=== PATIENT | male | born 1950 | race Caucasian/White ===

== ENCOUNTER 2016-10-06 06:59 | Day surgery (SDC) | payer BC ==
[~2016-10-06] VITALS: Ht 182.9 cm; Wt 120.0 kg
[~2016-10-06 06:59] MED LIST: ASPI-496 PO; ASPI-515 PO; CITA20TA5 PO; FENO145T13 PO; MULT-26 PO; RANI150T8 PO; ROSU20TA PO
[2016-10-06] MEDS ORDERED: LACTATED RINGERS 1,000 ML IV SCH (07:29)
[2016-10-06] MEDS ORDERED: LIDOCAINE 1%, 2ML SQ PRN (07:30)
[2016-10-06 07:31] VITALS: BP 130/82
[2016-10-06] MEDS ORDERED: FENTANYL PF 100 MCG/2ML ONE (09:16)
[2016-10-06] MEDS ORDERED: LABETALOL 5MG/ML, 20ML IV PRN (10:00)
[2016-10-06] MEDS ORDERED: ONDANSETRON 2MG/ML, 2ML IVPush PRN (10:00)
[2016-10-06] MEDS ORDERED: HYDROmorphone 1 MG/ML, 1ML IV PRN (10:00)
[2016-10-06] MEDS ORDERED: METOPROLOL 1 MG/ML, 5ML IV PRN (10:00)
[2016-10-06] MEDS ORDERED: OXYcodone 5 MG/5 ML ORAL.SOL UDC PO PRN (10:00)
[2016-10-06] MEDS ORDERED: FENTANYL PF 100 MCG/2ML IV PRN (10:00)
[2016-10-06] MEDS ORDERED: PROMETHAZINE 25 MG/ML, 1ML IV PRN (10:00)
[2016-10-06] MEDS ORDERED: hydrALAzine 20 MG/ML, 1ML IV PRN (10:00)
[2016-10-06] MEDS ORDERED: PROPOFOL 10 MG/ML, 20ML ONE (11:00)
[2016-10-06] MEDS ORDERED: NEOSTIGMINE 1 MG/ML, 10ML ONE (11:00)
[2016-10-06] MEDS ORDERED: GLYCOPYRROLATE 0.2MG/1ML ONE (11:00)
[2016-10-06] MEDS ORDERED: ONDANSETRON 2MG/ML, 2ML ONE (11:00)
[2016-10-06] MEDS ORDERED: ROCURONIUM 10 MG/ML ONE (11:00)
[2016-10-06] MEDS ORDERED: CEFAZOLIN 1,000 MG ONE (11:00)
== END 2016-10-06 12:30 | disposition home or self-care (01) ==
LOC: OUT 06:59
PROVIDERS: ATTEND Urology
DX: N30.21 Other chronic cystitis with hematuria (principal); N40.0 Benign prostatic hyperplasia without lower urinary tract symptoms; K21.9 Gastro-esophageal reflux disease without esophagitis; I25.10 Atherosclerotic heart disease of native coronary artery without angina pectoris; I25.2 Old myocardial infarction; E66.01 Morbid (severe) obesity due to excess calories; Z68.35 Body mass index [BMI] 35.0-35.9, adult; Z88.8 Allergy status to other drugs, medicaments and biological substances; N32.89 Other specified disorders of bladder; E78.5 Hyperlipidemia, unspecified; I50.9 Heart failure, unspecified; F17.210 Nicotine dependence, cigarettes, uncomplicated; Z96.652 Presence of left artificial knee joint; Z85.22 Personal history of malignant neoplasm of nasal cavities, middle ear, and accessory sinuses; Z85.51 Personal history of malignant neoplasm of bladder; Z80.52 Family history of malignant neoplasm of bladder; Z82.49 Family history of ischemic heart disease and other diseases of the circulatory system
CPT/HCPCS: 52224; 52234; 88305; J0690; J2405; J2704; J2710; J3010; J7120; J3490